=== PATIENT | female | born 1995 ===

== ENCOUNTER 2017-06-24 15:41 | Emergency (ER) | payer OTHER ==
[2017-06-24 16:17] VITALS: BP 111/83
--- NOTE | 2017-06-24 16:40 | UC ---
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 -sx started ~ 4-5 days ago, she thinks, but nt certain. resolved today. last fever was 06/21/17 of 101. Tmax was 06/20/17 of 102 "I think". -denies as she has a nml period now. she reporst that she has implenon. denies recent intercourse. -left upper back pain lasted for only a few seconds and resolved. no numbing or tingling down arm. no HERNANDES. -mild nausea all week w/ increased BM frequency. -no abd pain. no dysuria. + mild nausea. no voimiting. -denies any significant vision change. very vague historian. - History of Current Complaint Chief Complaint: UCGeneralIllness Stated Complaint: BODY ACHE/BACK/FEVER Time Seen by Provider: 06/24/17 16:38 Hx Last Menstrual Period: 06/18/17 Pain Intensity: 2 - Allergy/Home Medications Allergies/Adverse Reactions: Allergies Allergy/AdvReac Type Severity Reaction Status Date / Time amoxicillin Allergy Hives Verified 06/24/17 15:59 Home Medications: Home Medications Implanon 1 unit SUBCUT DAILY 06/24/17 [History Confirmed 06/24/17] PMH/Surg Hx/FS Hx/Imm Hx Previously Healthy: Yes - Surgical History Surgical History: None - Family History Known Family History: Positive: Hypertension - Social History Alcohol Use: Occasionally Substance Use Type: None Smoking Status (MU): Never Smoked Tobacco Review of Systems Constitutional: Negative Skin: Negative Eyes: Negative ENT: Negative Respiratory: Negative Cardiovascular: Negative Gastrointestinal: Negative Genitourinary: Negative Motor: Negative Neurovascular: Negative Musculoskeletal: Negative Neurological: Negative Psychological: Negative Is Patient Immunocompromised?: No All Other Systems Reviewed And Are Negative: Yes Physical Exam Triage Information Reviewed: Yes Appearance: Well-Appearing, No Pain Distress, Well-Nourished Vital Signs: Initial Vital Signs Temp 99.1 F 06/24/17 16:03 Pulse 78 06/24/17 16:03 Resp 20 06/24/17 16:03 BP 111/83 06/24/17 16:03 Pulse Ox 98 06/24/17 16:03 Vital Signs Reviewed: Yes Eye Exam: Normal ENT Exam: Normal ENT: Positive: Pharynx normal, TMs normal. Negative: TM bulging, TM dull, TM red, Sinus tenderness Dental Exam: Normal Neck exam: Normal Neck: Positive: Supple, Nontender, No Lymphadenopathy Respiratory Exam: Normal Respiratory: Positive: Lungs clear, Normal breath sounds, No respiratory distress. Negative: Crackles, Rhonchi, Stridor Cardiovascular Exam: Normal Cardiovascular: Positive: RRR, No Murmur, Pulses Normal Abdomen Description: Positive: Nontender, Soft. Negative: CVA Tenderness (R), CVA Tenderness (L), Distended, Guarding Bowel Sounds: Positive: Present Musculoskeletal: Positive: Other: - left lower trap with small muscle spasm that reproduces pain upon palpation. Neurological Exam: Normal Psychological Exam: Normal Skin Exam: Normal Course/Dx - Course Course Of Treatment: she request out of school note dated 06/21 through today. she is aware that notes cannot be backdated and only note will be given for today. -sx are mild and resolving and I do not suspect any anticipated further releases needed. - Differential Dx - Multi-Symptom Provider Diagnoses: M/S strain, mild gastroenteritis Discharge - Sign-Out/Discharge Documenting (check all that apply): Discharge - Discharge Plan Condition: Stable Disposition: HOME Patient Education Materials: Acute Nausea and Vomiting (ED) Forms: *School Release Referrals: Non Staff,Doctor [Primary Care Provider] - Additional Instructions: -You shuold follow up with student health this week. -You can use icy hot patches on your left upper back. -you should eat a bland diet until your symptoms resolve. - Billing Disposition and Condition Condition: STABLE Disposition: HOME
== END 2017-06-24 16:59 | disposition home or self-care (01) ==
LOC: UCCORT 15:41
DX: T14.8XXA Other injury of unspecified body region, initial encounter (principal); X58.XXXA Exposure to other specified factors, initial encounter; Z88.0 Allergy status to penicillin; Y93.9 Activity, unspecified; Y92.9 Unspecified place or not applicable; K52.9 Noninfective gastroenteritis and colitis, unspecified
CPT/HCPCS: 99201; G0463